=== PATIENT | female | born 1975 | race Caucasian/White ===

== ENCOUNTER 2017-05-26 10:34 | Emergency (ER) | payer OTHER ==
[~2017-05-26] VITALS: Ht 157.5 cm; Wt 93.5 kg
[2017-05-26 11:35] LABS: ADD MIUA? YES; BILIRUBIN NEGATIVE; BLOOD MODERATE; COLOR COLORLESS ((YELLOW)); GLUCOSE (STRIP) NEGATIVE; KETONES NEGATIVE; LEUKOCYTES NEGATIVE; NITRITE NEGATIVE; PROTEIN (STRIP) NEGATIVE; SPECIFIC GRAVITY 1.005 (1.000-1.030); UROBILINOGEN 0.2 MG/DL (0.2-1.0)
[2017-05-26 11:38] LABS: BACTERIA RARE /HPF; EPITHELIAL CELLS RARE /HPF; MUCUS TRACE /LPF; RED BLOOD CELLS 0-5 /HPF (0-5); WHITE BLOOD CELLS 0-5 /HPF (0-5)
[2017-05-26 11:43] LABS: EOSINOPHIL (%) 2.6 % (0-5); EOSINOPHIL COUNT 0.2 K/uL (0-0.3); HEMATOCRIT 45.1 % (36.0-46.0); IMMATURE GRANULOCYTE (%) 0.2 % (0.0-0.7); INSTRUMENT ABS NEUTROPHIL CT 2.8 K/uL; LYMPHOCYTE COUNT 2.2 K/uL (1.0-2.8); MCH 27.8 PG (29.0-34.0); MCHC 32.6 G/DL (30.0-36.0); MCV 85.4 FL (83-99); MEAN PLAT.VOLUME 9.7 uM^3 (9.5-12.4); MONOCYTE (%) 8.1 % (3-12); MONOCYTE COUNT 0.5 K/uL (0-0.8); NEUTROPHIL (%) 49.2 % (45-76); NEUTROPHIL COUNT 2.8 K/uL (1.8-6.4); PLATELET COUNT 228 K/uL (156-360); RBC DIS.WIDTH-CV 12.9 % (11.8-14.6); RED BLOOD COUNT 5.28 M/uL (3.80-5.20); WHITE BLOOD COUNT 5.7 K/uL (4.1-10.2)
[2017-05-26 11:54] LABS: CHLORIDE 105 mEq/L (99-109); POTASSIUM 3.9 mEq/L (3.7-5.4); SODIUM 139 mEq/L (136-147)
[2017-05-26 11:56] LABS: GLUCOSE 83 mg/dL (70-99)
[2017-05-26 11:57] LABS: ANION GAP 8 MEQ/L (2-14)
[2017-05-26 11:59] LABS: GFR ESTIMATE (CALCULATED) > 59 mL/min/
[2017-05-26 12:00] LABS: UREA NITROGEN (BUN) 13 mg/dL (9-23)
[2017-05-26 12:09] LABS: QUANTITATIVE HCG < 4.0 MIU/ML
[2017-05-26] MEDS ORDERED: MOTRIN600 MG PO (15:12)
[2017-05-26] MEDS ORDERED: TRAMADOL HCL50 MG PO (15:12)
[2017-05-26 15:23] VITALS: BP 143/89
== END 2017-05-26 15:24 | disposition home or self-care (01) ==
LOC: EME 10:34
PROVIDERS: Physician Assistant
DX: S39.011A Strain of muscle, fascia and tendon of abdomen, initial encounter (principal); X58.XXXA Exposure to other specified factors, initial encounter; Y93.01 Activity, walking, marching and hiking; D25.9 Leiomyoma of uterus, unspecified; N93.9 Abnormal uterine and vaginal bleeding, unspecified
CPT/HCPCS: 76856; 80048; 81003; 84702; 85025; 99281; 99284